=== PATIENT | female | born 1965 | race Caucasian/White ===

== ENCOUNTER → 2019-03-21 | Outpatient (CLI) | payer BC ==
--- NOTE | 2019-03-21 14:39 | MM ---
Reason for exam: follow-up at short interval from prior study. Last mammogram was performed 10 years and 7 months ago. Physical Findings: Nurse Summary: 2cm nodule in the left breast at 3 o'clock (nurse kp). MG 3D Diag Mammo W/Cad DAKOTAH Bilateral CC and MLO view(s) were taken. ML, spot compression CC, and spot compression MLO view(s) were taken of the right breast. Prior study comparison: July 21, 2018, mammogram. February 22, 2017, mammogram. January 09, 2016, mammogram. The breast tissue is heterogeneously dense. This may lower the sensitivity of mammography. There are round oval circumscribed bilateral masses as described on the ultrasound of the same day. There is a spiculated 2.6 x 2.0cm left mass at 3 o'clock and smaller multiple masses posterior to the index mass with the most dominant measuring 8mm. Stereotactic biopsy recommended for this mass as no sonographic correlate and would change surgical management if positive. These results were verbally communicated with the patient and result sheet given to the patient on 03/21/19. ASSESSMENT: Highly suggestive of malignancy, BI-RAD 5 RECOMMENDATION: Stereotactic core biopsy of the left breast. Ultrasound core biopsy of both breasts. Called office with mammographic findings and has scheduled an appointment for the patient for 04/13/19 at 1:[address] Navarro. Ultrasound core biopsy scheduled for 04/04/19 at 12:20. Stereotactic core biopsy scheduled for 04/07/19 at 8:00. PRELIMINARY REPORT CALLED AND FAXED TO DR. NAVARRO ON 03/21/19.
--- NOTE | 2019-03-21 14:44 | USB ---
Reason for exam: follow-up at short interval from prior study. US Breast Limited BILAT Right complete breast ultrasound includes all four quadrants, the retroareolar region and axilla. Finding demonstrates a 8 x 3 x 6mm oval, cystic lesion at 12 o'clock, a 4 x 4 x 5mm cystic cluster at 2 o'clock, a 5 x 3 x 13mm cystic cluster at 3 o'clock, a 4 x 2 x 3mm mixed lesion at 8 o'clock, a 8 x 3 x 4mm mixed lesion at 10 o'clock and a 6 x 5 x 6mm oval, solid, isoechoic, vascular lesion at 11 o'clock for which a biopsy is recommended. Left limited breast ultrasound including focal area of concern, retroareolar and axilla demonstrates a 8 x 3 x 7mm cystic lesion at 12 o'clock, a 9 x 8 x 21mm cystic cluster at 1 o'clock, a 4 x 4 x 6mm cystic lesion at 2 o'clock, a 31 x 20 x 16mm spiculated, irregular, solid, hypoechoic, vascular lesion at 3 o'clock BB, highly suspicious, biopsy recommended and a 18 x 18 x 24mm cortical thickening, hypoechoic, vascular lesion at the axilla, biopsy recommended. These results were verbally communicated with the patient and result sheet given to the patient on 03/21/19. ASSESSMENT: Highly suggestive of malignancy, BI-RAD 5 RECOMMENDATION: Ultrasound core biopsy of both breasts. Right 11 o'clock, left 3 o'clock and axilla. Called office with mammographic findings and has scheduled an appointment for the patient for 04/13/19 at 1:[address] Navarro. Ultrasound core biopsy scheduled for 04/04/19 at 12:20. Stereotactic core biopsy scheduled for 04/07/19 at 8:00. PRELIMINARY REPORT CALLED AND FAXED TO DR. NAVARRO ON 03/21/19.
== END | disposition home or self-care (01) ==
LOC: RADMAMWWP 10:06
PROVIDERS: ATTEND Family Medicine
DX: R92.8 Other abnormal and inconclusive findings on diagnostic imaging of breast (principal)
CPT/HCPCS: 77062; 77066

== ENCOUNTER → 2019-04-04 | Day surgery (SDC) | payer BC ==
--- NOTE | 2019-04-04 14:05 | USB ---
EXAMINATION TYPE: US biopsy breast VAD LT, US breast needle core LT, US biopsy breast add'l VAD RT, MG diagnostic mammo BI wo CAD DATE OF EXAM: 04/04/2019 CLINICAL HISTORY: R92.8 ABNORMAL MAMMOGRAM. Abnormal ultrasound TECHNIQUE: Ultrasound guided core biopsy of left breast 3:00 lesion and left axilla abnormal lymph node along with ultrasound guided core biopsy right breast 11:00 subcentimeter lesion. Follow-up diagnostic bilateral breast mammogram after procedure. COMPARISON: Bilateral breast ultrasound and mammogram March 21, 2019 and older mammograms. FINDINGS: The procedure of ultrasound guided core biopsy was explained to the patient. Benefits, alternatives, and risks were discussed. An informed consent was then obtained. Preprocedure imaging redemonstrates strongly suspicious lesion left breast and axilla and less suspicious lesion right breast. The patient was placed in supine positioning for imaging and for the procedure. The overlying skin was prepped and draped in usual sterile fashion. Lidocaine was used as anesthetic into the skin and lidocaine with epinephrine is used as anesthetic in the deeper tissue up to area of concern in the bilateral breasts. Under ultrasound guidance, a 12-gauge vacuum assisted biopsy gun device was used to obtain 2 core samples through the suspicious heterogeneous hypoechoic 1.9 cm lesion 3:00 position left breast. Following this, a biopsy coil clip was left in lesion under ultrasound guidance. An 18-gauge sampling device was used to obtain 3 core samples through abnormal enlarged left axillary lymph node. Hydromark clip was placed under ultrasound guidance. Attention turn to right breast where 11:00 zone a peripheral hypervascular round slightly hyperechoic 6 mm lesion is seen in both utilizing vacuum-assisted biopsy gun device. 2 core samples obtained. Biopsy ribbon clip placed after sampling. The patient tolerated the procedure well without any immediate complication. The patient was kept in the radiology department for short stay after the procedure and then discharged home in stable condition. Postprocedure mammogram confirms successful deployment of bilateral clips. IMPRESSION: Successful, uncomplicated ultrasound guided core biopsy of areas of concern in the bilateral breasts, full pathology results to follow. High index of suspicion for left breast 3:00 and axillary lesions. Low index of suspicion for right breast 11:00 lesion. Pathology Results: Malignant A. RIGHT BREAST, NEEDLE CORE BIOPSY: Fibroadenoma. B. 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 See Surgical Pathology Cancer Case Summary. C. LESION OF LEFT AXILLA, NEEDLE CORE BIOPSY: Adenocarcinoma involving sclerotic lymph node (positive for metastatic disease). Recommendation Surgical consult of the right and left breast. MTDD
[2019-04-04 14:54] VITALS: BP 138/76; PULSE 76; RESP 16; TEMP 97.7
== END ==
LOC: RADUSWWP 16:07
PROVIDERS: ATTEND Family Medicine
DX: C50.912 Malignant neoplasm of unspecified site of left female breast (principal); C77.3 Secondary and unspecified malignant neoplasm of axilla and upper limb lymph nodes; D24.1 Benign neoplasm of right breast; Z17.1 Estrogen receptor negative status [ER-]
CPT/HCPCS: 88305; 88342; 88341; 77066; 19083; 19084; 38505; A4648; J2001

== ENCOUNTER → 2019-04-07 | Day surgery (SDC) | payer BC ==
[2019-04-07 07:32] VITALS: RESP 16; TEMP 97.8
[2019-04-07 09:37] VITALS: BP 159/93; PULSE 78
--- NOTE | 2019-04-07 10:10 | MM ---
EXAMINATION TYPE: MG stereo VAD BX LT DATE OF EXAM: 04/07/2019 COMPARISON: Prior mammogram 3 days earlier and older mammograms. CLINICAL HISTORY: Abnormal mammogram. Recently biopsy-proven left breast cancer. TECHNIQUE: Stereotactic guided core biopsy of left breast. FINDINGS: The procedure of stereotactic guided core biopsy was explained to the patient. Benefits, alternatives, and risks were discussed. An informed consent was then obtained. Case is reviewed. Exam performed as may alter management for known breast cancer. The [facility] pathway for biopsy was chosen. Shortness pathway was lateral approach. I performed the localization, then performed the remainder of the procedure. A vacuum assisted biopsy gun was used to obtain multiple core samples. The patient tolerated the procedure well without any immediate complication. The patient was kept in the radiology department for short stay after the procedure and then discharged home in stable condition. Post biopsy mammogram shows the clip to appear in satisfactory position relative to the targeted area of concern on the preprocedure images. There is a [id number] size postbiopsy hematoma along the posterior lateral superior aspect of the clip. Area of concern is roughly 3 to 4 cm posterior and to the slightly upper outer aspect from recently biopsy proven cancer under ultrasound. IMPRESSION: SUCCESSFUL, UNCOMPLICATED STEREOTACTIC GUIDED CORE BIOPSY OF AREA OF CONCERN IN THE LEFT BREAST, FULL PATHOLOGY RESULTS TO FOLLOW. Intermediate index of suspicion noted at time of procedure for this mammogram lesion. Patient has newly diagnosed left breast cancer anterior to this with biopsy-proven axillary lymph node involvement. 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 See Surgical Pathology Cancer Case Summary. Recommendation Surgical consult of the left breast. Definitive surgical management. Extent of disease is at least 5.3cm including anterior calcifications adjacent to the coil biopsy marker extending posterior to the dumbbell marker. Known axillary metastasis. MTDD
== END ==
LOC: RADMAMWWP 07:09
PROVIDERS: ATTEND Family Medicine
DX: C50.912 Malignant neoplasm of unspecified site of left female breast (principal)
CPT/HCPCS: 88305; 88342; 88341; 19081; A4648; J2001

== ENCOUNTER → 2019-04-12 | Outpatient (CLI) | payer BC ==
[2019-04-12 12:59] VITALS: BP 161/105; PULSE 91; RESP 16; TEMP 98.1
--- NOTE | 2019-04-12 14:14 | P.GSHP ---
History of Present Illness H&P Date: 04/12/19 Chief Complaint: right brest cancer Aurelia is a 53 year old white female seen in consultation for , she noted a nodule in her left breast February of 2019. She also noted a bruise at that time. She has also noticed some fullness no under her left arm and some numbness and tingling of her arm. She had a mammogram scheduled for March, this was done on 03-21-2019. This showed a spiculated lesion of 2.6 x 2 cm at the 3 o'clock position of the left breast with a smaller mass posterior to the index mass. She underwent ultrasound-guided core biopsy of the left breast at 3:00 which revealed infiltrating ductal carcinoma, she also had focal high- grade ductal carcinoma in situ. Additionally the left axilla was biopsied which revealed adenocarcinoma. She had a core biopsy of the right breast performed which was a fibroadenoma. Abdomen she underwent a stereotactic core biopsy of a posterior lesion in the left breast which was also invasive high-grade ductal carcinoma. Her last prior mammogram was 2D in [place]. No prior breast biopsies in the past. No masses in her breast in the past. Family History: maternal grandmother: lung cancer, smoker paternal grandmother: skin cancer Hormonal History: menarche: 12 , breast fed: yes, age at first : 22 menopause: ablation done at 40, not know if menopausal, does have hot flashes BCP: 10 years hormones: none Past Surgical History: 1. tubal 1993 2. uterine ablation Past Medical History: 1. HTN Social History: smoke: stopped 2018, 5/8 cigarettes/day alcohol: social, weekly drugs: Marijuana occasionally - Constitutional Comment: hot flashes Constitutional: Denies chills, Denies fever - EENT Eyes: denies blurred vision, denies pain Ears: deny: decreased hearing, tinnitus Ears, nose, mouth and throat: Denies headache, Denies sore throat - Breasts Breasts: bilateral: as per HPI - Cardiovascular Cardiovascular: Reports high blood pressure - Respiratory Comment: former smoker - Gastrointestinal Comment: colonoscopy: 2 years ago was told could go for 5 years Gastrointestinal: Reports diarrhea - Genitourinary (Female) Genitourinary: Denies dysuria, Denies hematuria - Menstruation Comment: uterine ablation, not sure if in menopause - Musculoskeletal Musculoskeletal: Denies myalgias - Integumentary Integumentary: Denies pruritus, Denies rash - Neurological Neurological: Reports numbness, Denies weakness - Psychiatric Psychiatric: Denies anxiety, Denies depression - Endocrine Endocrine: Denies fatigue, Denies weight change - Hematologic/Lymphatic Comment: none - Allergic/Immunologic Allergic/Immunologic: Reports as per HPI Past Medical History Past Medical History: Hypertension History of Any Multi-Drug Resistant Organisms: None Reported Past Surgical History: Tubal Ligation Additional Past Surgical History / Comment(s): tubal ligation 1992; uterine ablation 2005; 04/04/19 bilateral ultrasound core biopsy positive left breast cancer; Past Anesthesia/Blood Transfusion Reactions: No Reported Reaction Past Psychological History: No Psychological Hx Reported Smoking Status: Former smoker Additional Past Alcohol Use History / Comment(s): Stopped smoking 01/12/2019 Medications and Allergies Home Medications Medication Instructions Recorded Confirmed Type Multivitamins, Thera [Multivitamin 1 tab PO DAILY 03/28/19 04/12/19 History (formulary)] NIFEdipine [Procardia XL] 60 mg PO DAILY 03/28/19 04/12/19 History Allergies Allergy/AdvReac Type Severity Reaction Status Date / Time No Known Allergies Allergy Verified 04/12/19 12:52 Surgical - Exam Vital Signs Temp Pulse Resp BP Pulse Ox 98.1 F 91 16 161/105 98 04/12/19 12:54 04/12/19 12:54 04/12/19 12:54 04/12/19 12:54 04/12/19 12:54 BMI 31.8 - General well developed, well nourished, no distress - Eyes normal ocular movement - ENT normal pinna, normal nares, no hearing loss, no congestion - Neck no masses, trachea midline - Respiratory normal expansion, normal respiratory effort, clear to auscultation - Cardiovascular Rhythm: regular Heart Sounds: normal: S1, S2 - Abdomen Abdomen: soft, non tender, bowel sounds, no guarding, no rigid, no rebound - Integumentary normal turgor - Neurologic no disoriented, no combative - Musculoskeletal normal gait, normal posture - Psychiatric oriented to time, oriented to person, oriented to place, speech is normal, memory intact Breast examination: BRA 40C ptosis 2/3 Inspection: Bilateral ecchymosis greatest in the left breast in the lower outer quadrant area No nipple inversion Palpation: Right breast: Multiple positional exam no dominant masses or nodules of concern, fibrocystic changes Right axilla: No adenopathy of concern Left breast: Multiple positional exam approximately 3 cm area of firmness in the 3 o'clock position of the left breast there is most likely hematoma adjacent to this making the total size difficult to ascertain No other dominant masses or nodules of concern Left axilla: No adenopathy of concern Results Mammogram results reviewed Assessment and Plan Assessment: Impression: 1. Stage IIB left breast cancer [id number] 2. mass left breast 3. HTN 4. left axillary node palpable Plan: 1. Appointment with medical oncology 2. Consider MRI after hematoma has resolved 3. Present case at tumor board I discussed the patient's stage of cancer with she and her family. We have discussed neoadjuvant chemotherapy. I have called Dr. Coleman and spoken to him to set up an appointment today for her to see him. We have talked about surgical options which range from mastectomy to lumpectomy and radiation. At this time she is most likely going to have neoadjuvant chemotherapy. Her case will be presented at tumor board. Cc: Dr. Navarro encounter 60 minutes > 50% of time in planning and counselling
== END | disposition home or self-care (01) ==
LOC: WWCWWP 12:42
PROVIDERS: ATTEND Surgery
DX: Z53.9 Procedure and treatment not carried out, unspecified reason (principal)

== ENCOUNTER 2019-04-20 11:39 | Day surgery (SDC) | payer BC ==
[2019-04-19 12:25] VITALS: BMI 32.3
[~2019-04-20 11:39] MED LIST: DEXAMETHASONE SOD PHOSPHATE 10 MG/ML 1 ML VIAL IV ONE; HEPARIN SODIUM,PORCINE 5,000 UNIT/ML 1 ML VIAL SQ ONE; LACTATED RINGERS 1,000 ML IV SCH; LIDOCAINE 1% 20 ML VIAL (10MG/ML) FOR IV START INTRADERMA PRN; Pre Op ABX Message 1 EACH MISC MISCELLANE ONE; SCOPOLAMINE 1.5MG/72HR PATCH TRANSDERM ONE
[2019-04-20] MEDS ORDERED: ONDANSETRON 4 MG/2 ML VIAL IVP ONE (13:49)
--- NOTE | 2019-04-20 14:39 | P.GSHP ---
History of Present Illness H&P Date: 04/20/19 Chief Complaint: Left breast cancer 54-year-old female recently diagnosed with left breast cancer. Found to have metastasis to left axillary node. Here today for Port-A-Cath placement. She is starting neoadjuvant chemotherapy soon. No history of port placement. Past Medical History Past Medical History: Hypertension Additional Past Medical History / Comment(s): plantar fasciitis yury., new dx. breast cancer History of Any Multi-Drug Resistant Organisms: None Reported Past Surgical History: Tubal Ligation Additional Past Surgical History / Comment(s): tubal ligation 1992; uterine ablation 2005; 04/04/19 bilateral ultrasound core biopsy positive left breast cancer; Past Anesthesia/Blood Transfusion Reactions: No Reported Reaction Smoking Status: Former smoker Medications and Allergies Home Medications Medication Instructions Recorded Confirmed Type Multivitamins, Thera [Multivitamin 1 tab PO DAILY 03/28/19 04/20/19 History (formulary)] NIFEdipine [Procardia XL] 60 mg PO DAILY 03/28/19 04/20/19 History Allergies Allergy/AdvReac Type Severity Reaction Status Date / Time No Known Allergies Allergy Verified 04/20/19 13:33 Surgical - Exam Vital Signs Temp Pulse Resp BP Pulse Ox 97.8 F 89 16 172/98 96 04/20/19 13:46 04/20/19 13:46 04/20/19 13:46 04/20/19 13:46 04/20/19 13:46 Physical exam: General: Well-developed, well-nourished HEENT: Normocephalic, sclerae nonicteric Abdomen: Nontender, nondistended Extremities: No edema Neuro: Alert and oriented Assessment and Plan (1) Breast cancer, left Narrative/Plan: Will proceed with Port-A-Cath placement at this time. Risks of bleeding, infection, DVT, pneumothorax, catheter malfunction, anesthesia related complications were discussed. The patient understands and wishes to proceed. Current Visit: Yes Status: Acute Code(s): C50.912 - MALIGNANT NEOPLASM OF UNSPECIFIED SITE OF LEFT FEMALE BREAST SNOMED Code(s): 345808140
[2019-04-20] MEDS ORDERED: LIDOCAINE (PF) 10 MG/ML 2 ML VIAL SQ ONE ×2 (15:05→15:32)
[2019-04-20] MEDS ORDERED: PROPOFOL 10 MG/ML 20 ML VIAL IV ONE (15:05)
[2019-04-20] MEDS ORDERED: MIDAZOLAM 2 MG/2 ML VIAL ONE (15:05)
[2019-04-20] MEDS ORDERED: HEPARIN SODIUM,PORCINE 100 UNIT/ML 5 ML VIAL IV ONE ×2 (15:05→15:32)
[2019-04-20] MEDS ORDERED: fentaNYL (PF) 50 MCG/ML 2 ML AMP ONE (15:05)
[2019-04-20] MEDS ORDERED: SODIUM CHLORIDE 0.9% 50 ML with ceFAZolin 2,000 MG IV ONE ×2 (15:25)
[2019-04-20] MEDS ORDERED: NALOXONE 0.4 MG/ML 1 ML VIAL IV PRN (15:47)
--- NOTE | 2019-04-20 15:53 | P.OP ---
Date of Procedure: 04/20/19 Procedure(s) Performed: PREOPERATIVE DIAGNOSIS: Left breast cancer POSTOPERATIVE DIAGNOSIS: Same PROCEDURE: Port-A-Cath placement SURGEON: Desmond EBL: Minimal ANESTHESIA: Sedation COMPLICATIONS: None OPERATIVE PROCEDURE: Patient was brought and placed on the operative table in the supine position. The patient was sedated per anesthesia that time. The chest and neck were prepped and draped in usual sterile fashion. The ultrasound probe was used to identify the location of the right internal jugular vein. The skin was localized with lidocaine. The Seldinger needle was advanced into the IJ under ultrasound guidance. The wire was advanced through the needle under fluoroscopic guidance into the superior vena cava. A port pocket was created in the right infraclavicular location. The catheter was tunneled from the wire entrance site to the port pocket. The port was then connected to the catheter. The dilator introducer was threaded over the guidewire. The guidewire and dilator were then removed. The catheter was advanced through the introducer and introducer was then removed. The tip was seen to be in the right atrial junction. Port was flushed with both saline and a Hep-Lock solution. There was good flow both in and out of the port. The port was sutured in underlying tissues using 3-0 silk sutures. The subcutaneous tissues were reapproximated using 3-0 Vicryl sutures and the skin at both locations using 4-0 Monocryl sutures. Skin glue and sterile dressings then applied. DISPOSITION: Stable to recovery room
[2019-04-20 16:06] VITALS: TEMP 96.9
[2019-04-20] MEDS: HYDROmorphone 0.5 MG/0.5 ML SYRINGE IVP PRN ×2 (16:35→16:40)
--- NOTE | 2019-04-20 16:44 | XR ---
EXAMINATION TYPE: XR chest 1V portable DATE OF EXAM: 04/20/2019 COMPARISON: None HISTORY: Post Mediport placement TECHNIQUE: Single frontal view of the chest is obtained. FINDINGS: Mediport is present on the right pectoral region, there is a right internal jugular approac h, distal tip the catheter is overlying superior vena cava. There are overlying cardiac leads. There is no focal air space opacity, pleural effusion, or pneumothorax seen. The cardiac silhouette size i s within normal limits. The osseous structures are intact, there is a spinal curvature. IMPRESSION: No evident complication status post Mediport insertion.
[2019-04-20] MEDS ORDERED: LACTATED RINGERS 1,000 ML IV ONE (16:57)
--- NOTE | 2019-04-20 16:57 | FL ---
Fluoroscopy HISTORY: Port-A-Cath placement 3 seconds fluoroscopy time supplied to the referring clinician. 1 intraoperative C-arm images docume nt the procedure. See dictated report from general surgery.
[2019-04-20 17:56] VITALS: BP 163/98; PULSE 65; RESP 20
== END 2019-04-20 18:10 | disposition home or self-care (01) ==
LOC: OR 11:39
PROVIDERS: ATTEND Surgery
DX: C50.912 Malignant neoplasm of unspecified site of left female breast (principal); C77.3 Secondary and unspecified malignant neoplasm of axilla and upper limb lymph nodes; I10 Essential (primary) hypertension; M72.2 Plantar fascial fibromatosis; Z98.51 Tubal ligation status; Z87.891 Personal history of nicotine dependence; Z79.899 Other long term (current) drug therapy; Z98.890 Other specified postprocedural states
CPT/HCPCS: 77001; 71045; 36561; C1788; J2250; J2001; J1644; J1642; J1100; J2405; J0690; J3010; J2704; J1170

== ENCOUNTER → 2019-04-20 | Outpatient (CLI) | payer BC ==
--- NOTE | 2019-04-20 11:41 | NM ---
EXAMINATION TYPE: NM bone scan whole body DATE OF EXAM: 04/20/2019 COMPARISON: NONE HISTORY: Breast cancer Delayed whole-body scanning was performed following the injection of 23.5 mCi Tc 99m MDP. Images acq uired 3 hours post injection. FINDINGS: Focal uptake is seen within the left breast at the site of known breast carcinoma. Symmetric uptake is seen of the sternoclavicular joints, glenohumeral joints, chromic clavicular thai ons, sacroiliac joints, hips, knees, and ankles all arthropathy. Although on whole body images the uptake of the ribs is slightly patchy, on coned down small field-of -view images of the ribs there is no persistent suspicious focus of radiotracer uptake. IMPRESSION: No scintigraphic evidence of osseous metastatic disease. Uptake is seen within the left b reast from the patient's known left breast cancer.
--- NOTE | 2019-04-20 18:04 | ECHOF ---
Referral Reason:C50.812 breast ca pre chemo MEASUREMENTS -------- HEIGHT: 167.6 cm WEIGHT: 90.7 kg BP: RVIDd: 3.2 cm (< 3.3) IVSd: 1.4 cm (0.6 - 1.1) LVIDd: 3.8 cm (3.9 - 5.3) LVPWd: 0.9 cm (0.6 - 1.1) IVSs: 1.8 cm LVIDs: 2.3 cm LVPWs: 1.9 cm LAESV Index (A-L): 25.68 ml/m Ao Diam: 3.2 cm (2.0 - 3.7) AV Cusp: 2.3 cm (1.5 - 2.6) LA Diam: 2.8 cm (2.7 - 3.8) MV EXCURSION: 14.642 mm (> 18.000) MV EF SLOPE: 78 mm/s (70 - 150) EPSS: 0.4 cm MV E Ruddy: 0.93 m/s MV DecT: 254 ms MV A Ruddy: 0.75 m/s MV E/A Ratio: 1.24 RAP: 5.00 mmHg RVSP: 22.84 mmHg FINDINGS -------- Sinus rhythm. This was a technically adequate study. The left ventricular size is normal. There is mild concentric left ventricular hypertrophy. Overa ll left ventricular systolic function is normal with, an EF between 55 - 60 %. The diastolic fillin g pattern is normal for the age of the patient 10.66. The right ventricle is normal in size. Normal LA size by volume 22+/-6 ml/m2. The right atrial size is normal. Interatrial and interventricular septum intact. The aortic valve is trileaflet and appears structurally normal. There is no evidence of aortic regu rgitation. There is no evidence of aortic stenosis. No mitral regurgitation. Mild tricuspid regurgitation present. There is no evidence of pulmonary hypertension. The right v entricular systolic pressure, as measured by Doppler, is 22.84mmHg. There is no pulmonic regurgitation present. The aortic root size is normal. Normal inferior vena cava with normal inspiratory collapse consistent with estimated right atrial pre ssure of 5 mmHg. There is no pericardial effusion. CONCLUSIONS -------- 1. Sinus rhythm. 2. This was a technically adequate study. 3. The left ventricular size is normal. 4. There is mild concentric left ventricular hypertrophy. 5. Overall left ventricular systolic function is normal with, an EF between 55 - 60 %. 6. The diastolic filling pattern is normal for the age of the patient 10.66 7. The right ventricle is normal in size. 8. Normal LA size by volume 22+/-6 ml/m2. 9. The right atrial size is normal. 10. Interatrial and interventricular septum intact. 11. The aortic valve is trileaflet and appears structurally normal. 12. There is no evidence of aortic regurgitation. 13. There is no evidence of aortic stenosis. 14. No mitral regurgitation. 15. Mild tricuspid regurgitation present. 16. There is no evidence of pulmonary hypertension. 17. The right ventricular systolic pressure, as measured by Doppler, is 22.84mmHg. 18. There is no pulmonic regurgitation present. 19. The aortic root size is normal. 20. Normal inferior vena cava with normal inspiratory collapse consistent with estimated right atrial pressure of 5 mmHg. 21. There is no pericardial effusion. HOP WORKER: Fernanda Willis RDCS
== END | disposition home or self-care (01) ==
LOC: RADCTMAIN 07:04
PROVIDERS: ATTEND Internal Medicine Hematology & Oncology
DX: C50.812 Malignant neoplasm of overlapping sites of left female breast (principal); I07.1 Rheumatic tricuspid insufficiency
CPT/HCPCS: 78306; 93306; A9503

== ENCOUNTER → 2019-04-26 | Outpatient (CLI) | payer BC ==
--- NOTE | 2019-04-26 15:10 | CT ---
EXAMINATION TYPE: CT ChestAbdPelvis w con DATE OF EXAM: 04/26/2019 COMPARISON: No previous exams HISTORY: Recent diagnosis of breast cancer CT DLP: 1998 mGycm Automated exposure control for dose reduction was used. CONTRAST: CT scan of the chest, abdomen and pelvis is performed with Oral Contrast and with IV Contrast, patien t injected with 100 mL of Isovue 300. FINDINGS: There is left axillary adenopathy present. Breast mass is present laterally, abnormal soft tissue within the marker, there is an enlarged mixed hypodense focus just superior to the area of moni pling with associated clip measuring 3.9 x 3.2 cm consistent with dominant axillary node that has bee n sampled. LUNGS: The lungs are remarkable for subpleural 3 mm nodule right upper lobe, axial image #24, sagitta l image 93 of questionable clinical significance.. There is no pleural effusion or pneumothorax see n. The tracheobronchial tree is patent. MEDIASTINUM: There are no greater than 1 cm hilar or mediastinal lymph nodes. No pericardial effusi on is seen. AORTA: No significant abnormality is seen. OTHER: Right pectoral port is present, right jugular access, distal tip of the catheter in the cavoa trial junction level. LIVER/GB: No significant abnormality is appreciated. PANCREAS: No significant abnormality is seen. SPLEEN: No significant abnormality is seen. ADRENALS: No significant abnormality is seen. KIDNEYS: No significant abnormality is seen. Circumaortic left renal vein is noted. REPRODUCTIVE ORGANS: Probable fibroid uterus, there is bulky heterogeneous appearance, question clips in the adnexal regions BOWEL: No significant abnormality is seen. FREE AIR: No Free Air visible. ASCITES: None seen. RETROPERITONEAL ADENOPATHY: No retroperitoneal adenopathy is seen. LYMPH NODES: No greater than 1 cm abdominal or pelvic lymph nodes are appreciated. URINARY BLADDER: No significant abnormality is seen. PELVIC ADENOPATHY: None visualized. OSSEOUS STRUCTURES: No significant abnormality is seen. IMPRESSION: Findings compatible with patient's left breast cancer with left axillary adenopathy.
--- NOTE | 2019-04-27 12:07 | BMR ---
EXAMINATION TYPE: MR breast BILAT wo/w con DATE OF EXAM: 04/26/2019 COMPARISON: Ultrasound and mammographic exams dating back to 03/21/2019 HISTORY: Multifocal left breast grade 3 adenocarcinoma diagnosed on both ultrasound and stereotactic guided biopsies. Known malignant left axillary adenopathy. TECHNIQUE: A series of fat and water weighted images in the long and short axis views of both breasts are obtained in conjunction with dynamic contrast MRI with subtraction technique. The patient was i njected with 9 mL intravenous Gadavist gadolinium contrast. Three-dimensional and additional postpr ocessing imaging is created on independent workstation and reviewed during official interpretation of this study. FINDINGS: The breasts are composed of heterogenous fibroglandular tissue with mild symmetric background parench ymal enhancement. Right: The biopsy-proven right breast fibroadenoma at 11:00 is demonstrated measuring approximately 6 mm. No suspicious mass nor nonmass enhancement is seen on the right. Right-sided Mediport is appreci ated. Lymph nodes: No right-sided abnormal axillary adenopathy. There is no abnormal internal mammary adeno ahri seen bilaterally. There are 10 abnormal left axillary lymph nodes, one is seen between the pect oralis minor and major on postcontrast series 701 image 459, and multiple adjacent to the left axilla ry artery and vein on image 495. There is an additional mildly suspicious lymph node measuring only 4 mm in short axis on image 453 deep to the pectoralis major muscle. Left: Susceptibility is seen on postcontrast series 701 image 225 within the biopsy-proven 3:00 left breast mass representing the known adenocarcinoma (grade 3) as well as within the most dominant left axillary lymph node from a [place] clip on image 411. This lymph node measures 2.5 cm in short axi s. Susceptibility artifact is also seen surrounding a known postprocedural hematoma from the stereota ctic guided biopsy on 04/07/2019 resulting in invasive high-grade ductal carcinoma (grade 3). This is seen near the axilla on image 261 hematoma measuring 3.5 x 3.2 cm. In addition to the biopsy-proven multifocal breast cancer there are multiple additional other abnorma l enhancing masses and clumped irregular nonmass enhancement. The extent of disease measures 9.8 x 3. 3 cm in anterior posterior by transverse dimension on axial image 273 of series 701. There are also m ultiple abnormal foci of enhancement that are seen just inferior to the nipple in the lower outer reinaldo drant on image 201 spanning 7.9 cm. Therefore there is multicentric disease. The inner quadrant are u nremarkable of the left breast. IMPRESSION: 1. Multicentric disease involving the left upper outer quadrant and left lower outer quadrant with ex tent of disease measuring 9.8 x 3.3 cm in anterior posterior by transverse dimension. If breast conse rvation therapy is desired biopsy would be recommended of a lower outer quadrant abnormally enhancing focus to pathologically exclude multicentric disease. 2. There are greater than 10 abnormal left axillary lymph nodes with one lymph node situated between the pectoralis major and minor another moderately suspicious lymph node posterior to the pectoralis m ajor. 3. Biopsy-proven right breast fibroadenoma. 4. No abnormal internal mammary adenopathy, no abnormal right axillary adenopathy, and no MR findings of malignancy within the right breast.
== END | disposition home or self-care (01) ==
LOC: RADMRIMAIN 10:44
PROVIDERS: ATTEND Surgery
DX: C50.812 Malignant neoplasm of overlapping sites of left female breast (principal); D24.1 Benign neoplasm of right breast
CPT/HCPCS: 71260; 74177; 77049; C8937; A9585; Q9967

== ENCOUNTER → 2019-06-15 | Outpatient (CLI) | payer BC ==
--- NOTE | 2019-06-15 15:45 | ECHOF ---
Referral Reason:C50.812 breast cancer Z01.818 chemo MEASUREMENTS -------- HEIGHT: 167.6 cm WEIGHT: 90.7 kg BP: 143/89 RVIDd: 3.1 cm (< 3.3) IVSd: 1.2 cm (0.6 - 1.1) LVIDd: 3.6 cm (3.9 - 5.3) LVPWd: 1.2 cm (0.6 - 1.1) IVSs: 1.5 cm LVIDs: 2.4 cm LVPWs: 1.8 cm LA Diam: 3.3 cm (2.7 - 3.8) LAESV Index (A-L): 16.39 ml/m Ao Diam: 2.8 cm (2.0 - 3.7) AV Cusp: 1.2 cm (1.5 - 2.6) MV EXCURSION: 6.833 mm (> 18.000) MV EF SLOPE: 39 mm/s (70 - 150) EPSS: 1.4 cm MV E Ruddy: 0.65 m/s MV DecT: 257 ms MV A Ruddy: 0.92 m/s MV E/A Ratio: 0.70 TAPSE: 21.87 mm FINDINGS -------- Sinus rhythm. This was a technically adequate study. The left ventricular size is normal. There is borderline concentric left ventricular hypertrophy. Overall left ventricular systolic function is normal with, an EF between 55 - 60 %. The right ventricle is normal in size. Normal LA size by volume 22+/-6 ml/m2. The right atrial size is normal. Interatrial and interventricular septum intact. The aortic valve is trileaflet, and appears structurally normal. No aortic stenosis or regurgitation. The mitral valve is normal. There is trace to mild mitral regurgitation. The tricuspid valve appears structurally normal. Trace tricuspid regurgitation present. There is no pulmonic regurgitation present. The aortic root size is normal. Normal inferior vena cava with normal inspiratory collapse consistent with estimated right atrial pre ssure of 5 mmHg. There is no pericardial effusion. CONCLUSIONS -------- 1. There is borderline concentric left ventricular hypertrophy. 2. Overall left ventricular systolic function is normal with, an EF between 55 - 60 %. 3. Normal LA size by volume 22+/-6 ml/m2. 4. The aortic valve is trileaflet, and appears structurally normal. No aortic stenosis or regurgitati on. 5. There is trace to mild mitral regurgitation. 6. Trace tricuspid regurgitation present. 7. There is no pulmonic regurgitation present. 8. Normal inferior vena cava with normal inspiratory collapse consistent with estimated right atrial pressure of 5 mmHg. 9. There is no pericardial effusion. SOFTWARE VALIDATION TECHNICIAN: Chitra Lee RDCS
== END | disposition home or self-care (01) ==
LOC: RADECHMAIN 11:22
PROVIDERS: ATTEND Internal Medicine Hematology & Oncology
DX: I34.0 Nonrheumatic mitral (valve) insufficiency (principal); I51.7 Cardiomegaly; C50.812 Malignant neoplasm of overlapping sites of left female breast
CPT/HCPCS: 93306

== ENCOUNTER → 2019-08-09 | Outpatient (CLI) | payer BC ==
--- NOTE | 2019-08-10 09:25 | BMR ---
EXAMINATION TYPE: MR breast BILAT wo/w con DATE OF EXAM: 08/09/2019 COMPARISON: MRI of the breasts dated 04/26/2019 as well as ultrasound and mammographic exams dating ba ck to 03/21/2019 HISTORY: Known Breast CA, Follow up study. Biopsy-proven multifocal left breast grade 3 adenocarcinom a diagnosed with both ultrasound and stereotactic guided biopsies with malignant left axillary adenop athy. TECHNIQUE: A series of fat and water weighted images in the long and short axis views of both breasts are obtained in conjunction with dynamic contrast MRI with subtraction technique. The patient was i njected with 7.5 mL intravenous Gadavist gadolinium contrast. Three-dimensional and additional post processing imaging is created on independent workstation and reviewed during official interpretation of this study. FINDINGS: The breasts are composed of heterogenous fibroglandular tissue with mild symmetric background parench ymal enhancement. Right: The 6 mm biopsy-proven right breast fibroadenoma at 11:00 is again demonstrated. No new suspic ious mass nor nonmass enhancement is seen on the right. Right-sided Mediport is present. Left: There is marked improvement in the primary left breast mass at the 3:00 position with susceptib ility artifact from the biopsy marker seen on postcontrast series 701 image 271 (biopsy proven right 3 adenocarcinoma). The mass that previously measured approximately 4 cm no longer demonstrates enhanc ement and is not clearly visible on MRI. Posterior to this susceptibility artifact is seen on image 3 02 from the prior stereotactic guided biopsy and resolving hematoma (biopsy proven high-grade invasiv e ductal carcinoma at this site). There is also marked degree of improvement in the size of the biops y-proven left axillary pathologic lymph node previously measuring up to 2.5 cm in short axis and now measuring 0.8 cm in short axis. Just cranial to this lymph node there are clustered suspicious lymph nodes with a somewhat rounded morphology measuring up to 7 mm in short axis. On the prior exam there are approximately 10 morphologically abnormal lymph nodes some new the subclavian artery and vein an d 1 posterior to the pectoralis, which now measures 5 mm in short axis. These lymph nodes have all de creased in size. The numerous abnormal enhancing foci and clumped nonmass enhancement have also improved from the prio r. There remains a focus of abnormal enhancement medial and just superior to the hematoma on postcont rast series 701 image 34 demonstrating type III washout kinetics, suspicious. This should be excised with the biopsy marker and is located 1.3 cm cranial to the biopsy marker and 1.2 cm medial to the bi opsy marker. Additionally there are 2 abnormal foci anterior medial to the 3:00 biopsy marker. The first is seen o n image 272 located 2.2 cm from the biopsy marker and measuring 7 mm in size and the second is seen o n image 242 located 3.8 cm anterior medial to the biopsy marker and measuring 5 mm in size. These aga in are seen inferior to the nipple in the lower outer quadrant. These were deemed suspicious on the i nitial MRI however do not demonstrate suspicious kinetics after neoadjuvant chemotherapy. Lastly a ro unded mass measuring 9 mm is seen 1 cm anterior and 1.8 cm cranial to the 3:00 biopsied neoplasm on p ostcontrast series 701 image 349. Although this does not demonstrate suspicious kinetics this was vivien picious on the initial MRI. Distance between the biopsy-proven breast carcinoma as an in anterior posterior dimension measures 4. 0 cm. IMPRESSION: Response to treatment with marked improvement in the previously seen multicentric abnormal enhancemen t in the left breast and improved left axillary adenopathy. Abnormal enhancement previously measuring 9.8 x 3.3 cm involving the upper outer quadrant and lower outer quadrant of the left breast has reso lved on MRI. The biopsy markers are located approximately 4.0 cm apart denoting the 2 site biopsy pro tracy breast cancer of the left breast. However there is a highly suspicious focus adjacent to the more posterior marker with detailed measurements above that should be included in any surgical resection. Adjacent to the more anterior biopsy marker there are 3 foci that were suspicious on the original MR I but no longer demonstrate abnormal enhancement after neoadjuvant chemotherapy. These should be take n into consideration when planning surgical management.
== END | disposition home or self-care (01) ==
LOC: RADMRIMAIN 11:39
PROVIDERS: ATTEND Surgery
DX: R59.9 Enlarged lymph nodes, unspecified (principal); R92.8 Other abnormal and inconclusive findings on diagnostic imaging of breast; C50.912 Malignant neoplasm of unspecified site of left female breast
CPT/HCPCS: 77049; C8937; A9585

== ENCOUNTER → 2019-08-09 | Outpatient (CLI) | payer BC ==
--- NOTE | 2019-08-10 08:18 | USB ---
Reason for exam: history of breast cancer, conservation therapy. History: Patient has history of breast cancer at age 53. Malignant MG stereo VAD BX LT of the left breast, April 07, 2019. Malignant US breast needle core LT of the left breast, April 04, 2019. Malignant US biopsy breast VAD LT of the left breast, April 04, 2019. Malignant US biopsy breast add'l VAD RT of the right breast, April 04, 2019. Chemotherapy. Physical Findings: Nurse did not find any significant physical abnormalities on exam. US Breast LT Left complete breast ultrasound includes all four quadrants, the retroareolar region and axilla. Finding demonstrates a 9 x 8 x 8mm round, oval, mixed lesion with post enhancement at 2 o'clock probable debris filled cyst, a 20 x 6 x 9mm irregular, solid, hypoechoic lesion at 3 o'clock known cancer decreased in size on CT, a 3 x 2 x 3mm oval lesion too small to characterize at 10 o'clock, simple cyst and a 9 x 3 x 5mm oval, cystic lesion at 11 o'clock, simple cyst. These results were verbally communicated with the patient and result sheet given to the patient on 08/09/19. ASSESSMENT: Known biopsy proven malignancy, BI-RAD 6 RECOMMENDATION: Surgical consultation of the left breast. (known malignancy 3 o'clock) Manage patient on a clinical basis.
== END | disposition home or self-care (01) ==
LOC: RADUSWWP 09:59
PROVIDERS: ATTEND Surgery
DX: N63.24 Unspecified lump in the left breast, lower inner quadrant (principal)

== ENCOUNTER → 2019-09-05 | Outpatient (CLI) | payer BC ==
--- NOTE | 2019-09-05 08:31 | US ---
EXAMINATION TYPE: US venous doppler duplex LE DATE OF EXAM: 09/05/2019 8:18 AM COMPARISON: NONE CLINICAL HISTORY: M79.606,R60.0,Z51.11 DAKOTAH LEG PAIN,EDEMA,ON CHEMO. SIDE PERFORMED: Bilateral TECHNIQUE: The lower extremity deep venous system is examined utilizing real time linear array sonog liliya with graded compression, doppler sonography and color-flow sonography. VESSELS IMAGED: External Iliac Vein (EIV) Common Femoral Vein Deep Femoral Vein Greater Saphenous Vein * Femoral Vein Popliteal Vein Small Saphenous Vein * Proximal Calf Veins (* superficial vessels) Right Leg: Negative for DVT Left Leg: Negative for DVT Grayscale, color doppler, spectral doppler imaging performed of the deep veins of the bilateral lower extremities. There is normal flow, compressibility, vascular waveforms. IMPRESSION: No ultrasound evidence for acute DVT in either lower extremity.
[2019-09-05 10:01] LABS: African American GFR (CKD) >90 (>60 ml/min/1.73 sqM); Anion Gap 6 mmol/L; Blood Urea Nitrogen 19 mg/dL (7-17); Calcium 9.2 mg/dL (8.4-10.2); Carbon Dioxide 30 mmol/L (22-30); Chloride 101 mmol/L (98-107); Creatine Kinase 26 U/L (30-135); Glucose 113 mg/dL (74-99); Magnesium 1.5 mg/dL (1.6-2.3); Non-African American GFR(CKD) >90 (>60 ml/min/1.73 sqM); Sodium 137 mmol/L (137-145)
== END | disposition home or self-care (01) ==
LOC: RADUSWWP 07:52
PROVIDERS: ATTEND Family Medicine
DX: M79.604 Pain in right leg (principal); M79.605 Pain in left leg; Z51.11 Encounter for antineoplastic chemotherapy; I10 Essential (primary) hypertension; M62.82 Rhabdomyolysis
CPT/HCPCS: 80048; 82550; 83735; 93970

== ENCOUNTER → 2019-09-06 | Outpatient (CLI) | payer BC ==
--- NOTE | 2019-09-06 14:00 | ECHOF ---
Referral Reason:Z01.818 chemo exposure, SOB R06.02 MEASUREMENTS -------- HEIGHT: 167.6 cm WEIGHT: 92.5 kg BP: 132/75 RVIDd: 3.1 cm (< 3.3) IVSd: 1.3 cm (0.6 - 1.1) LVIDd: 4.1 cm (3.9 - 5.3) LVPWd: 1.2 cm (0.6 - 1.1) IVSs: 1.7 cm LVIDs: 2.6 cm LVPWs: 1.5 cm LA Diam: 3.3 cm (2.7 - 3.8) LAESV Index (A-L): 25.00 ml/m Ao Diam: 3.3 cm (2.0 - 3.7) AV Cusp: 2.2 cm (1.5 - 2.6) MV EXCURSION: 11.236 mm (> 18.000) MV EF SLOPE: 56 mm/s (70 - 150) EPSS: 0.6 cm MV E Ruddy: 0.82 m/s MV DecT: 321 ms MV A Ruddy: 0.80 m/s MV E/A Ratio: 1.02 FINDINGS -------- Sinus rhythm. This was a technically good study. The left ventricular size is normal. There is mild concentric left ventricular hypertrophy. Overa ll left ventricular systolic function is normal with, an EF between 60 - 65 %. The right ventricle is normal in size. Normal LA size by volume 22+/-6 ml/m2. The right atrium is normal in size. Interatrial and interventricular septum intact. The aortic valve is trileaflet and appears structurally normal. There is trace mitral regurgitation. The tricuspid valve appears structurally normal. There is no pulmonic regurgitation present. The aortic root size is normal. Normal inferior vena cava with normal inspiratory collapse consistent with estimated right atrial pre ssure of 5 mmHg. There is no pericardial effusion. CONCLUSIONS -------- 1. Sinus rhythm. 2. This was a technically good study. 3. The left ventricular size is normal. 4. There is mild concentric left ventricular hypertrophy. 5. Overall left ventricular systolic function is normal with, an EF between 60 - 65 %. 6. The right ventricle is normal in size. 7. Normal LA size by volume 22+/-6 ml/m2. 8. The right atrium is normal in size. 9. Interatrial and interventricular septum intact. 10. The aortic valve is trileaflet and appears structurally normal. 11. There is trace mitral regurgitation. 12. The tricuspid valve appears structurally normal. 13. There is no pulmonic regurgitation present. 14. The aortic root size is normal. 15. Normal inferior vena cava with normal inspiratory collapse consistent with estimated right atrial pressure of 5 mmHg. 16. There is no pericardial effusion. RN RESOURCE NURSE: Chitra Lee RDCS
== END | disposition home or self-care (01) ==
LOC: RADECHMAIN 08:30
PROVIDERS: ATTEND Internal Medicine Hematology & Oncology
DX: Z01.818 Encounter for other preprocedural examination (principal); I34.0 Nonrheumatic mitral (valve) insufficiency; R06.02 Shortness of breath
CPT/HCPCS: 93306

== ENCOUNTER → 2019-10-02 | Outpatient (CLI) | payer BC ==
--- NOTE | 2019-10-02 10:25 | CT ---
EXAMINATION TYPE: CT chest w con DATE OF EXAM: 10/02/2019 COMPARISON: 04/26/2019 HISTORY: 54-year-old female Z03.89, C50.812, Breast cancer TECHNIQUE: Contiguous axial scanning of the chest after the administration of 100 mL of Isovue 300. Coronal/sagittal reconstructions performed. CT DLP: 502.3mGycm. Automatic exposure control utilized for a dose reduction. FINDINGS: Right anterior chest wall injection port with catheter tip at the lower SVC level. Heart normal size without pericardial effusion. Aorta normal caliber with conventional arch vessel branching anatomy. No thoracic lymphadenopathy by CT size criteria. The previous enlarged left axillary lymph nodes are no longer identified. Status post bilateral mastectomies. Bilateral breast expanders are present. Linear densities along the bilateral expanders likely postsur gical. Clinical correlation can be made to exclude the possibility of infected prosthesis. Mild dependent atelectasis. No consolidation or pleural effusion. Possible new edema interposed between the duodenum and head of the pancreas, refer to axial image 64. Short segment mild dilatation of the main pancreatic duct at the level of the pancreatic body measur ing up to 4 mm is unchanged. Bones: No osseous destructive process. Mild degenerative disc disease midthoracic spine. IMPRESSION: 1. Interval bilateral mastectomies. The previous enlarged left axillary lymph nodes are no longer dianna ntified. No thoracic lymphadenopathy by CT size criteria. 2. Bilateral breast expanders have been placed. There are linear air densities associated with both e xpanders that could relate to recent surgical placement or manipulation of the expanders. Clinically correlate to exclude the possibility of infected prosthesis. 3. No evidence for metastatic disease in the chest or visualized upper abdomen. 4. There seems to be new edema interposed between the duodenum and head of the pancreas (axial image 64). Differential considerations include duodenitis such as relating to peptic ulcer disease or groov e pancreatitis. Clinically correlate. Follow-up as indicated.
== END | disposition home or self-care (01) ==
LOC: RADPROMAIN 08:05
PROVIDERS: ATTEND Internal Medicine Hematology & Oncology
DX: Z90.13 Acquired absence of bilateral breasts and nipples (principal); Z98.82 Breast implant status; C50.812 Malignant neoplasm of overlapping sites of left female breast
CPT/HCPCS: 71260; J1642; Q9967

== ENCOUNTER → 2019-11-10 | Outpatient (CLI) | payer BC ==
--- NOTE | 2019-11-10 12:42 | ECHOF ---
Referral Reason:Z01.818 Chemo exposure MEASUREMENTS -------- HEIGHT: 170.2 cm WEIGHT: 88.5 kg BP: RVIDd: 3.2 cm (< 3.3) IVSd: 1.1 cm (0.6 - 1.1) LVIDd: 3.9 cm (3.9 - 5.3) LVPWd: 1.1 cm (0.6 - 1.1) IVSs: 1.3 cm LVIDs: 2.9 cm LVPWs: 1.5 cm Ao Diam: 3.0 cm (2.0 - 3.7) AV Cusp: 1.9 cm (1.5 - 2.6) MV EXCURSION: 22.907 mm (> 18.000) MV EF SLOPE: 110 mm/s (70 - 150) EPSS: 0.3 cm MV E Ruddy: 0.63 m/s MV DecT: 158 ms MV A Ruddy: 0.56 m/s MV E/A Ratio: 1.12 FINDINGS -------- Sinus rhythm. This was a technically adequate study. Pt has breast CA with expanders Apicals are limited. LV size, wall thickness and systolic function are normal, with an EF greater than 55%. The left tracy tricular size is normal. The right ventricle is normal in size. The left atrial size is normal. The right atrial size is normal. The aortic valve is trileaflet, and appears structurally normal. No aortic stenosis or regurgitation. The mitral valve is normal. Mild mitral regurgitation is present. The tricuspid valve was not well visualized. Unable to estimate RVSP due to inadequate TR jet spect ral doppler profile. The pulmonic valve was not well visualized. There is no pulmonic regurgitation present. The aortic root size is normal. Echo free space may represent effusion or a pericardial fat pad. CONCLUSIONS -------- 1. Pt has breast CA with expanders Apicals are limited. 2. LV size, wall thickness and systolic function are normal, with an EF greater than 55%. 3. The left ventricular size is normal. 4. The right ventricle is normal in size. 5. The left atrial size is normal. 6. The right atrial size is normal. 7. The aortic valve is trileaflet, and appears structurally normal. No aortic stenosis or regurgitati on. 8. Mild mitral regurgitation is present. 9. The tricuspid valve was not well visualized. 10. Unable to estimate RVSP due to inadequate TR jet spectral doppler profile. EXPRESSIVE THERAPIST: Bridgette Krishnamurthy RDCS
== END | disposition home or self-care (01) ==
LOC: RADECHMAIN 11:33
PROVIDERS: ATTEND Internal Medicine Hematology & Oncology
DX: Z01.818 Encounter for other preprocedural examination (principal); I05.1 Rheumatic mitral insufficiency
CPT/HCPCS: 93306

== ENCOUNTER → 2020-02-12 | Outpatient (CLI) | payer BC ==
--- NOTE | 2020-02-12 13:30 | ECHOF ---
Referral Reason:Z01.818 Chemo exposure MEASUREMENTS -------- HEIGHT: 167.6 cm WEIGHT: 86.2 kg BP: IVSd: 1.5 cm (0.6 - 1.1) LVIDd: 3.6 cm (3.9 - 5.3) LVPWd: 1.5 cm (0.6 - 1.1) IVSs: 1.7 cm LVIDs: 2.5 cm LVPWs: 1.9 cm LAESV Index (A-L): 10.77 ml/m Ao Diam: 3.0 cm (2.0 - 3.7) AV Cusp: 1.8 cm (1.5 - 2.6) MV EXCURSION: 13.536 mm (> 18.000) MV EF SLOPE: 45 mm/s (70 - 150) EPSS: 0.8 cm MV E Ruddy: 0.72 m/s MV DecT: 154 ms MV A Ruddy: 0.79 m/s MV E/A Ratio: 0.91 RAP: 5.00 mmHg RVSP: 26.36 mmHg FINDINGS -------- Sinus rhythm. This was a technically adequate study. Pt. Has Breast inplants The left ventricular size is normal. There is moderate concentric left ventricular hypertrophy. O verall left ventricular systolic function is normal with, an EF between 55 - 60 %. The right ventricle is normal in size. Normal LA size by volume 22+/-6 ml/m2. The right atrial size is normal. Interatrial and interventricular septum intact. The aortic valve is trileaflet, and appears structurally normal. No aortic stenosis or regurgitation. The mitral valve is normal. No mitral regurgitation. Mild tricuspid regurgitation present. There is no evidence of pulmonary hypertension. The right v entricular systolic pressure, as measured by Doppler, is 26.36mmHg. There is no pulmonic regurgitation present. The aortic root size is normal. IVC Not well visulized. There is no pericardial effusion. CONCLUSIONS -------- 1. There is moderate concentric left ventricular hypertrophy. 2. Overall left ventricular systolic function is normal with, an EF between 55 - 60 %. 3. Normal LA size by volume 22+/-6 ml/m2. 4. The aortic valve is trileaflet, and appears structurally normal. No aortic stenosis or regurgitati on. 5. The mitral valve is normal. 6. Mild tricuspid regurgitation present. 7. There is no pericardial effusion. TRUSS DRIVER HELPER: Bridgette Krishnamurthy RDCS
== END | disposition home or self-care (01) ==
LOC: RADECHMAIN 11:23
PROVIDERS: ATTEND Internal Medicine Hematology & Oncology
DX: Z01.818 Encounter for other preprocedural examination (principal); I07.1 Rheumatic tricuspid insufficiency
CPT/HCPCS: 93306

== ENCOUNTER → 2020-04-05 | Outpatient (CLI) | payer BC ==
--- NOTE | 2020-04-05 13:45 | USB ---
Reason for exam: clinical finding. History: Patient has history of breast cancer at age 53. Malignant MG stereo VAD BX LT of the left breast, April 07, 2019. Malignant US breast needle core LT of the left breast, April 04, 2019. Malignant US biopsy breast VAD LT of the left breast, April 04, 2019. Malignant US biopsy breast add'l VAD RT of the right breast, April 04, 2019. Chemotherapy. Indicated problem(s): breast implant problem in the right breast. Physical Findings: Nurse Summary: patient has port on right side, right side swollen above implant, no redness/pain (nurse db). US Breast RT Right complete breast ultrasound includes all four quadrants, the retroareolar region and axilla. Finding demonstrates no cystic or solid lesion seen. These results were verbally communicated with the patient and result sheet given to the patient on 04/05/20. ASSESSMENT: Benign, BI-RAD 2 RECOMMENDATION: Clinical management of both breasts. Manage patient on a clinical basis.
== END | disposition home or self-care (01) ==
LOC: RADUSWWP 12:44
PROVIDERS: ATTEND Surgery Plastic and Reconstructive Surgery
DX: Z08 Encounter for follow-up examination after completed treatment for malignant neoplasm (principal); Z85.3 Personal history of malignant neoplasm of breast; Z90.11 Acquired absence of right breast and nipple

== ENCOUNTER → 2020-04-25 | Outpatient (CLI) | payer BC ==
--- NOTE | 2020-04-25 12:42 | ECHOF ---
Referral Reason:Z01.818 Chemo exposure MEASUREMENTS -------- HEIGHT: 170.2 cm WEIGHT: 83.5 kg BP: RVIDd: 3.6 cm (< 3.3) IVSd: 0.9 cm (0.6 - 1.1) LVIDd: 3.9 cm (3.9 - 5.3) LVPWd: 1.0 cm (0.6 - 1.1) IVSs: 1.7 cm LVIDs: 2.1 cm LVPWs: 1.7 cm Ao Diam: 3.6 cm (2.0 - 3.7) AV Cusp: 2.2 cm (1.5 - 2.6) MV EXCURSION: 19.436 mm (> 18.000) MV EF SLOPE: 98 mm/s (70 - 150) EPSS: 0.4 cm MV E Ruddy: 0.55 m/s MV DecT: 204 ms MV A Ruddy: 0.77 m/s MV E/A Ratio: 0.71 RAP: 5.00 mmHg RVSP: 23.34 mmHg FINDINGS -------- Sinus rhythm. This was a technically good study. LV size, wall thickness and systolic function are normal, with an EF greater than 55%. The left tracy tricular size is normal. The right ventricle is normal in size. The left atrial size is normal. The right atrial size is normal. The aortic valve is trileaflet, and appears structurally normal. No aortic stenosis or regurgitation. The mitral valve is normal. Mild mitral regurgitation is present. The tricuspid valve appears structurally normal. Mild tricuspid regurgitation present. Right vent ricular systolic pressure is normal at < 35 mmHg. There is no pulmonic regurgitation present. The aortic root size is normal. Echo free space represents a pericardial fat pad. CONCLUSIONS -------- 1. LV size, wall thickness and systolic function are normal, with an EF greater than 55%. 2. The aortic valve is trileaflet, and appears structurally normal. No aortic stenosis or regurgitati on. 3. Mild mitral regurgitation is present. 4. Mild tricuspid regurgitation present. 5. Echo free space represents a pericardial fat pad. MANAGER ER: Bridgette Krishnamurthy RDCS
== END | disposition home or self-care (01) ==
LOC: RADECHMAIN 10:37
PROVIDERS: ATTEND Internal Medicine Hematology & Oncology
DX: Z01.818 Encounter for other preprocedural examination (principal); I08.1 Rheumatic disorders of both mitral and tricuspid valves; E65 Localized adiposity
CPT/HCPCS: 93306

== ENCOUNTER → 2021-02-14 | Outpatient (CLI) | payer OTHER ==
--- NOTE | 2021-02-14 17:32 | CT ---
EXAMINATION TYPE: CT chest w con DATE OF EXAM: 02/14/2021 COMPARISON: 10/02/2019 HISTORY: Solitary pulmonary nodule. Hx LT side breast ca. Double mastectomy CT DLP: 457.20 mGycm Automated exposure control for dose reduction was used. CONTRAST: CT scan of the chest is performed with IV Contrast, patient injected with 100 mL of Isovue 300. FINDINGS: LUNGS: Focal opacity left upper lobe anteriorly measures 2.3 x 1.1 cm and is likely reflective of an area of infiltrate or postinflammatory change however a short-term follow-up is advised until resolut ion. The remainder of the lungs are felt to be clear at this time. No evidence for effusion. MEDIASTINUM: There are no greater than 1 cm hilar or mediastinal lymph nodes. No pericardial effusi on is seen. Thoracic aorta is of normal caliber. The heart is not enlarged. UPPER ABDOMEN: No significant abnormality appreciated. OTHER: Bilateral breast implants noted to be in place. IMPRESSION: Focal opacity left upper lobe anteriorly measures 2.3 x 1.1 cm and is likely reflective of an area of infiltrate or postinflammatory change however a short-term follow-up is advised until resolution.
== END | disposition home or self-care (01) ==
LOC: RADCTMAIN 16:07
PROVIDERS: ATTEND Internal Medicine Hematology & Oncology
DX: R91.8 Other nonspecific abnormal finding of lung field (principal); Z85.3 Personal history of malignant neoplasm of breast
CPT/HCPCS: 71260; Q9967

== ENCOUNTER → 2023-02-26 | Outpatient (CLI) | payer OTHER ==
--- NOTE | 2023-03-01 21:43 | CT ---
EXAMINATION TYPE: CT chest w con DATE OF EXAM: 02/26/2023 COMPARISON: 02/14/2021 HISTORY: 57-year-old female C5 0.812, Breast Ca. 2020 - in remission. Former smoker. TECHNIQUE: Contiguous axial scanning of the chest after the administration of 80 cc mL of Isovue 370. Coronal/sagittal reconstructions performed. CT DLP: 457.0mGycm. Automatic exposure control utilized for a dose reduction. FINDINGS: Bilateral breast reconstructions with subpectoral implants after mastectomies. Heart is normal size without pericardial effusion. Ectatic ascending aorta 3.6 cm. Ectatic upper descending thoracic aorta 3.0 cm. Conventional large ve ssel branching anatomy. No thoracic lymph adenopathy by CT size criteria. Redemonstrated focal curvilinear areas of scarring anterior left upper lobe. The associated irregular thickening is similar to slightly less pronounced than 2020 suggesting a benign etiology with chroni c scarring. No consolidation or pleural effusion Visualized upper abdomen shows no gross abnormality. Bones: No osseous destructive process. Mild anterior endplate spondylosis lower thoracic spine. Moder ate spondylytic change mid cervical spine. IMPRESSION: 1. Status post bilateral breast reconstruction surgery with retropectoral implants. 2. Redemonstrated pleural parenchymal scarring anterior left upper lobe. Associated irregular parench ymal thickening here is stable to less pronounced compared to 2020 suggesting a benign etiology/scarr ing.
== END | disposition home or self-care (01) ==
LOC: RADCTMAIN 14:27
PROVIDERS: ATTEND Internal Medicine Hematology & Oncology
DX: C50.812 Malignant neoplasm of overlapping sites of left female breast (principal); J98.4 Other disorders of lung; R91.1 Solitary pulmonary nodule; F41.9 Anxiety disorder, unspecified; Z98.890 Other specified postprocedural states; Z87.891 Personal history of nicotine dependence; Z98.82 Breast implant status; Z71.3 Dietary counseling and surveillance
CPT/HCPCS: 71260; Q9967

== ENCOUNTER → 2023-04-09 | Outpatient (CLI) | payer OTHER ==
--- NOTE | 2023-04-09 16:18 | US ---
EXAMINATION TYPE: US extremity nonvasc mass LT DATE OF EXAM: 04/09/2023 COMPARISON: NONE CLINICAL INDICATION: Female, 57 years old with history of R22.42 LEFT HIP MASS; LT HIP mass since january TECHNIQUE: several images taken at area of concern FINDINGS: Circumscribed, oval 4.8x1.9x4.8cm isoechoic area noted at palpable located within the subc utaneous adipose layer IMPRESSION: Targeted scanning of the patient's left hip at the palpable site shows a suspected 4.8 cm subcutaneou s lipoma. If symptomatic or if there is growth, surgical evaluation can be considered.
== END | disposition home or self-care (01) ==
LOC: RADUSWWP 15:25
PROVIDERS: ATTEND Family Medicine
DX: R22.42 Localized swelling, mass and lump, left lower limb (principal)

== ENCOUNTER → 2023-04-23 | Outpatient (CLI) | payer OTHER ==
--- NOTE | 2023-04-23 13:39 | US ---
EXAMINATION TYPE: US extremity nonvasc mass LT DATE OF EXAM: 04/23/2023 COMPARISON: NONE CLINICAL INDICATION: Female, 58 years old with history of R22.32 LOCALIZED SWELLING, MASS AND LUMP, L EFT UPP; Palpable area within left antecubital fossa x 4 days. Patient has history of left breast can cer in 2019 with chemotherapy and bilateral mastectomy. TECHNIQUE: FINDINGS: Scanned left antecubital fossa at patient's palpable area of concern. No abnormalities see n by ultrasound. IMPRESSION: No discrete abnormality seen.
== END | disposition home or self-care (01) ==
LOC: RADUSWWP 12:56
PROVIDERS: ATTEND Surgery
DX: R22.32 Localized swelling, mass and lump, left upper limb (principal); Z85.3 Personal history of malignant neoplasm of breast; Z90.11 Acquired absence of right breast and nipple; Z90.12 Acquired absence of left breast and nipple

== ENCOUNTER → 2024-03-17 | Outpatient (CLI) | payer OTHER ==
--- NOTE | 2024-03-17 11:32 | CTL ---
EXAMINATION TYPE: CT Low Dose Lung DATE OF EXAM ORDERED: 03/17/2024 COMPARISON: 02/26/2023 CLINICAL INDICATION: Female, 58 years old with history of Z12.2 LUNG CA SCR Z87.891 FORMER SMOKER; PH H, Lung CA screening, former smoker, history of breast CA, Lung cancer screening, History of Smoking/ tobacco use. TECHNIQUE: Low dose computed tomography scan was performed through the chest at 1 mm thick sections a nd reconstructed images in multiple planes at 1 mm and [address] DLP: [address] CTDI: 2.03 mGy Automated exposure control for dose reduction was used. CT DIAGNOSTIC QUALITY: Satisfactory FINDINGS: There is a single stable micronodule in the right upper lobe. No new or suspicious lung mass or nodul e is seen. The lungs are clear and there is no abnormal airspace consolidation. There is stable interstitial sca rring in the left upper lobe anteriorly. There is no mediastinal, hilar or axillary adenopathy. There is no pleural effusion, pleural thickening or pneumothorax. No focal osseous lesions are seen. There are bilateral breast implants. Limited scans the upper abdomen reveals no gross abnormality IMPRESSION: 1. Lung rads Category 2 benign.. Continue routine screening at yearly intervals. 2. No acute cardiopulmonary disease. 3. Stable mild interstitial scarring in the left upper lobe anteriorly. [facility], , 03/17/2024 11:30 AM
== END | disposition home or self-care (01) ==
LOC: RADCTMAIN 11:01
PROVIDERS: ATTEND Internal Medicine Hematology & Oncology
DX: Z12.2 Encounter for screening for malignant neoplasm of respiratory organs (principal); Z87.891 Personal history of nicotine dependence; J98.4 Other disorders of lung; Z85.3 Personal history of malignant neoplasm of breast
CPT/HCPCS: 71271